=== PATIENT | female | born 1960 | race Hispanic/Latino ===

== ENCOUNTER 2017-07-12 13:30 | Outpatient (CLI) | payer OTHER ==
--- NOTE | 2017-07-12 14:55 | XRay Report ---
KUB: 07/12/17 CLINICAL: Pain. FINDINGS: Normal bowel gas pattern with a large volume of stool in the right colon. No distended bowel and no air-fluid levels. Phleboliths in the pelvis. No mass or suspicious calcifications. The bones and soft tissues are normal. IMPRESSION: Negative abdomen with no urinary calculus.
== END 2017-07-12 13:31 | disposition home or self-care (01) ==
LOC: SPVIMAG 13:30
PROVIDERS: ATTEND Internal Medicine
DX: N20.1 Calculus of ureter (principal); I87.8 Other specified disorders of veins
CPT/HCPCS: 74000

== ENCOUNTER 2018-09-19 11:02 | Outpatient (CLI) | payer OTHER ==
--- NOTE | 2018-09-19 12:05 | XRay Report ---
ROUTINE CHEST, TWO VIEWS: Upper respiratory infection. PA and lateral views demonstrate the heart and mediastinal contour to be of normal size and shape. The lungs are clear and fully expanded and the soft tissues and bony structures are normal. IMPRESSION: Normal study.
== END 2018-09-19 11:03 | disposition home or self-care (01) ==
LOC: SPVIMAG 11:02
PROVIDERS: ATTEND Internal Medicine
DX: J06.9 Acute upper respiratory infection, unspecified (principal)
CPT/HCPCS: 71046